=== PATIENT | female | born 1995 | race Caucasian/White ===

== ENCOUNTER 2018-03-10 19:01 | Emergency (ER) | payer MEDICAID ==
[2018-03-10 20:59] VITALS: BP 122/88
== END 2018-03-10 20:59 | disposition home or self-care (01) ==
LOC: ED 19:01
DX: J02.9 Acute pharyngitis, unspecified (principal); Z91.018 Allergy to other foods
CPT/HCPCS: J0561

== ENCOUNTER 2019-03-04 20:59 | Emergency (ER) | payer MEDICAID ==
[~2019-03-04] VITALS: Ht 165.1 cm; Wt 103.4 kg
[2019-03-04 21:08] VITALS: BP 106/76; Ht 165.1 cm; Wt 103.4 kg
== END 2019-03-04 23:26 | disposition left against medical advice (07) ==
LOC: ED 20:59
DX: Z53.21 Procedure and treatment not carried out due to patient leaving prior to being seen by health care provider (principal)

== ENCOUNTER 2019-06-06 02:36 | Emergency (ER) | payer MEDICAID ==
[~2019-06-06] VITALS: Ht 165.1 cm; Wt 110.9 kg
[2019-06-06 02:39] VITALS: Ht 165.1 cm; Wt 110.9 kg
[2019-06-06 05:15] VITALS: BP 114/71
== END 2019-06-06 05:15 | disposition home or self-care (01) ==
LOC: ED 02:36
DX: J02.9 Acute pharyngitis, unspecified (principal); F41.9 Anxiety disorder, unspecified
CPT/HCPCS: J1100; J1885

== ENCOUNTER 2019-06-08 12:42 | Emergency (ER) | payer MEDICAID ==
[~2019-06-08] VITALS: Ht 160 cm; Wt 101.2 kg
[2019-06-08 12:51] VITALS: Ht 160 cm; Wt 101.2 kg
[2019-06-08 16:00] VITALS: BP 112/73
== END 2019-06-08 16:00 | disposition home or self-care (01) ==
LOC: ED 12:42
DX: J36 Peritonsillar abscess (principal); F41.9 Anxiety disorder, unspecified; M54.2 Cervicalgia
CPT/HCPCS: J0696; J1100; J1200; J1885; J3490; J7030; J7060